=== PATIENT | male | born 1960 | race Caucasian/White ===

== ENCOUNTER 2016-08-20 11:45 | Emergency (ER) | payer SELFPAY ==
[2016-08-20] MEDS ORDERED: KETOROLAC TROMETHAMINE 30 MG/1ML VIAL IVP ONE (12:17)
--- NOTE | 2016-08-20 12:21 | ED Physician Documentation ---
Abdominal Pain - HISTORIAN Historian: patient - HPI Stated Complaint: abdominal pain Chief Complaint: Abdominal Pain Onset: days ago (4) Duration: constant Timing: still present Context: denies: out of country travel, recent trauma Severity: moderate Quality: pain, cramping Associated Symptoms: fever, diarrhea (loose stool small amount), loss of appetite. denies: chills, nausea, vomiting, bloody emesis, grossly bloody stools Exacerbated by: nothing Relieved by: nothing Further Comments: yes - ROS CONST: no problems - SOCIAL HX Smoking History: greater than 1 pack/day Alcohol Use: occasionally Drug Use: none - FAMILY HX Family History: no significant history - PAST HX Past History: none Surgeries/Procedures: cholecystectomy Home Medications: Ambulatory Orders Medication Instructions Recorded Tramadol HCl [Ultram] 50 mg PO Q6 PRN #20 tablet 08/20/16 Allergies/Adverse Reactions: Allergies Allergy/AdvReac Type Severity Reaction Status Date / Time No Known Allergies Allergy Verified 08/20/16 11:55 - VITAL SIGNS Vital Signs: Vital Signs Temp Pulse Resp BP Pulse Ox 99.3 F 68 20 132/95 96 08/20/16 11:45 08/20/16 17:08 08/20/16 17:08 08/20/16 17:08 08/20/16 17:08 - REVIEWED ASSESSMENTS Nursing Assessment Reviewed: Yes Vitals Reviewed: Yes ED Results Lab/Radiology - Lab Results Lab Results: Lab Results 08/20/16 08/20/16 08/20/16 12:50 12:25 12:25 WBC 5.50 K/ul K/ul (4.00-12.00) RBC 5.12 M/ul M/ul (3.90-5.20) Hgb 16.1 g/dL g/dL (12.0-18.0) Hct 47.7 % % (37.0-53.0) MCV 93.1 fl fl (80.0-100.0) MCH 31.4 pg pg (28.0-34.0) MCHC 33.8 g/dL g/dL (30.0-36.0) RDW 14.3 % % (11.3-14.3) Plt Count 236 K/mm3 K/mm3 (130-400) Neut % (Auto) 57.4 % % (39.0-79.0) Lymph % (Auto) 29.0 % % (16.0-50.0) Whitfield % (Auto) 6.3 % % (0.0-11.0) Eos % (Auto) 4.4 % % (0.0-6.8) Baso % (Auto) 1.0 (0.0-1.5) Neut # 3.1 # k/uL # k/uL (1.4-7.7) Lymph # 1.6 # k/uL # k/uL (0.6-4.0) Whitfield # 0.4 # k/uL # k/uL (0.0-0.9) Eos # 0.2 # k/uL # k/uL (0.0-0.6) Baso # 0.1 # k/uL # k/uL (0.0-0.5) Reactive Lymphs % 1.8 % % (0.0-5.0) Reactive Lymphs # 0.1 # k/uL # k/uL (0.0-0.8) Sodium 137 mmol/L mmol/L (136-145) Potassium 4.0 mmol/L mmol/L (3.5-5.0) Chloride 107 mmol/L mmol/L (98-110) Carbon Dioxide 29 mmol/L mmol/L (20-32) BUN 6 mg/dL L mg/dL (10-26) Creatinine 0.7 mg/dL mg/dL (0.4-1.5) Estimated Creat Clear 156 Est GFR ( Amer) > 60 (60 - ) Est GFR (Non-Af Amer) > 60 (60 - ) Glucose 118 mg/dL H mg/dL (70-99) Calcium 9.9 mg/dL mg/dL (8.5-10.5) Total Bilirubin 0.7 mg/dL mg/dL (0.2-1.2) AST 34 U/L U/L (0-41) ALT 27 U/L U/L (0-45) Alkaline Phosphatase 52 U/L U/L (46-116) Total Protein 7.8 g/dL g/dL (6.0-8.5) Albumin 4.8 g/dL g/dL (3.0-5.5) Amylase 54 U/L U/L (20-104) Urine Color Yellow (YELLOW) Urine Appearance Clear (CLEAR) Urine pH 6.5 (5.0 - 8.0) Ur Specific Stevenson 1.010 (1.010-1.030) Urine Protein Negative mg/dL mg/dL (NEGATIVE) Urine Ketones Negative mg/dL mg/dL (NEGATIVE) Urine Occult Blood Negative (NEGATIVE) Urine Nitrite Negative (NEGATIVE) Urine Bilirubin Negative (NEGATIVE) Urine Urobilinogen 0.2 Eu Eu (0.2-1.0) Ur Leukocyte Esterase Negative (NEGATIVE) Urine Glucose Negative mg/dL mg/dL (NEGATIVE) - Radiology Radiology Impressions: Report Submission Date: Aug 20, 2016 3:16:17 PM CDT Patient Study Name: BEATRICE NICOLE Date: Aug 20, 2016 2:45:37 PM CDT Modality Type: CT\SR Gender: M Description: CT ABD & PELVIS W/ CON : 62 Institution: [facility] Physician: DAVID HANSON - ER Examination: CT Abdomen/pelvis History: Generalized abdominal discomfort Comparison exams: None available Technique: CT Abdomen/pelvis with IV protocol. Findings: Liver demonstrates diffuse low attenuation. No central enhancing lesion. Spleen, adrenals, and pancreas are without gross irregularity. No abnormal enhancement. Surgical clips gallbladder fossa. Kidneys demonstrate cortical an exophytic cysts. Mild stranding with Gerota's fascia. No enhancing lesion or suspicious calcification. No dilation of the intrarenal collecting systems or ureters. Bowel without abnormal dilation. Stool within the large bowel limiting sensitivity. Sigmoid diverticuli with thickened mucosa. No adjacent inflammatory changes or free fluid. Scattered subcentimeter mesenteric lymph nodes. Pelvic phleboliths. Osseous structures within normal limits. Lung base scarring. Impression: Sigmoid diverticulosis. No evidence for acute inflammatory process. Scattered subcentimeter mesenteric lymph nodes. No pathologic lymph nodes. Possibly represents sequela of mild mesenteritis. Fatty liver. Electronically signed on Aug 20, 2016 3:16:17 PM CDT by: Cr Evans - Orders Orders: ED Orders Category Date Time Status Place IV Lock 1T Care 08/20/16 12:18 Active ABD SERIES PA CHEST [RAD] Stat Exams 08/20/[address] ABD & PELVIS W/ CON Stat Exams 08/20/16 Completed AMYLASE Routine Lab 08/20/16 12:25 Completed CBC/PLATELET/DIFF Routine Lab 08/20/16 12:25 Completed CMP Routine Lab 08/20/16 12:25 Completed URINALYSIS Routine Lab 08/20/16 12:50 Completed 0.9 % Sodium Chloride [Normal Saline] 1,000 ml Med 08/20/16 13:00 Discontinued IV .Q1H 0.9 % Sodium Chloride [Normal Saline] 1,000 ml Med 08/20/16 12:56 Discontinued IV .STK-MED Ketorolac Tromethamine [Toradol] Med 08/20/16 12:17 Discontinued 30 mg IVP NOW ONE [facility] Med 08/20/16 12:26 Discontinued 1 each [facility] .STK-MED ONE fentaNYL CITRATE/PF [Duragesic] Med 08/20/16 14:37 Discontinued 50 mcg IVP NOW ONE Abdominal Pain Physical Exam - Physical Exam General Appearance: alert, mild distress NECK: normal inspection RESPIRATORY: no resp distress, chest non-tender, breath sounds normal. No: wheezes, rales, rhonchi CVS: reg rate & rhythm, heart sounds normal, equal pulses ABDOMEN: soft, normal bowel sounds, no distension, tenderness (mild diffuse). No: rebound, guarding NEURO: oriented X3, mood/affect nml, cognition normal Vital Signs: Vital Signs Temp Pulse Resp BP Pulse Ox 99.3 F 68 20 132/95 96 08/20/16 11:45 08/20/16 17:08 08/20/16 17:08 08/20/16 17:08 08/20/16 17:08 Discharge Clincal Impression: Mesenteric adenitis Prescriptions: Tramadol HCl [Ultram] 50 mg PO Q6 PRN #20 tablet PRN Reason: Pain Referrals: Primary Doctor,No [Primary Care Provider] - 2 Days Additional Instructions: Drink a lot of fluids to stay well hydrated. Take tyleno to help with pain. For severe pain take tramadol as instructed with food. If not improved within the next several days to follow-up with someone again. Home Medications: Ambulatory Orders Tramadol HCl [Ultram] 50 mg PO Q6 PRN #20 tablet 08/20/16 Condition: Stable Disposition: 01 HOME, SELF-CARE Decision to Admit: NO Date of Decison to Admit: 08/20/16 Decision Time: 16:14
[2016-08-20] MEDS ORDERED: PHARMACY KEY 1 EACH EACH MC ONE (12:26)
[2016-08-20 12:27] LABS: EOSINOPHILS % 4.4 % (0.0-6.8); MEAN CORPUSCULAR HEMOGLOBIN 31.4 pg (28.0-34.0); MEAN CORPUSCULAR VOLUME 93.1 fl (80.0-100.0); MONOCYTES % 6.3 % (0.0-11.0); NEUTROPHILS # 3.1 # k/uL (1.4-7.7)
[2016-08-20 12:47] LABS: eGFR (African) > 60; eGFR (Non-African) > 60
[2016-08-20 12:55] LABS: APPEARANCE,URINE Clear (CLEAR); COLOR,URINE Yellow (YELLOW); OCCULT BLOOD,URINE Negative (NEGATIVE); PH URINE 6.5 (5.0 - 8.0); UROBILINOGEN URINE 0.2 Eu (0.2-1.0)
[2016-08-20] MEDS ORDERED: 0.9 % SODIUM CHLORIDE 1,000 ML IV ONE (12:56)
[2016-08-20] MEDS ORDERED: 0.9 % SODIUM CHLORIDE 1,000 ML IV SCH (13:00)
[2016-08-20] MEDS ORDERED: fentaNYL CITRATE/PF 100 MCG/ 2ML AMP IVP ONE (14:37)
[2016-08-20 17:10] VITALS: BP 132/95
--- NOTE | 2016-08-20 17:25 | Diagnostic Imaging Report ---
[facility] [address] [facility] [address] [place], [place]. [address] Report Submission Date: Aug 20, 2016 12:47:52 PM CDT Patient Study Name: BEATRICE NICOLE Date: Aug 20, 2016 12:27:50 PM CDT Modality Type: CR Gender: M Description: CHEST,ABDOMEN : 62 Institution: [facility] Physician: DAVID HANSON - ANUEL Examination: Obstruction series History: Abdominal discomfort Findings: 4 views obtained of the chest and abdomen. Single view of the chest demonstrate a normal cardiac silhouette. Mildly prominent left hilum: possibly vasculature. No focal infiltrate. No effusion. Multiple views of the abdomen are without abnormal dilation of the large or small bowel. Air and stool throughout the large bowel. No suspicious calcification projecting over the renal fossa or the lower pelvic region. Scattered pelvic phleboliths. Right upper quadrant surgical clips. Osseous structures demonstrate degenerative changes. Impression: No infiltrate or effusion. Mildly prominent left hilum correlate with any previous examinations. If none available recommend a formal PA and lateral film No ileus or obstruction. No suspicious calcifications by plain film sensitivity. Electronically signed on Aug 20, 2016 12:47:52 PM CDT by: Cr MCDUFFIE
--- NOTE | 2016-08-20 17:31 | Diagnostic Imaging Report ---
[facility] [address] [facility].[address] [address] Report Submission Date: Aug 20, 2016 3:16:17 PM CDT Patient Study Name: BEATRICE NICOLE Date: Aug 20, 2016 2:45:37 PM CDT Modality Type: CT\SR Gender: M Description: CT ABD & PELVIS W/ CON : 62 Institution: [facility] Physician: DAVID HANSON Examination: CT Abdomen/pelvis History: Generalized abdominal discomfort Comparison exams: None available Technique: CT Abdomen/pelvis with IV protocol. Findings: Liver demonstrates diffuse low attenuation. No central enhancing lesion. Spleen, adrenals, and pancreas are without gross irregularity. No abnormal enhancement. Surgical clips gallbladder fossa. Kidneys demonstrate cortical an exophytic cysts. Mild stranding with Gerota's fascia. No enhancing lesion or suspicious calcification. No dilation of the intrarenal collecting systems or ureters. Bowel without abnormal dilation. Stool within the large bowel limiting sensitivity. Sigmoid diverticuli with thickened mucosa. No adjacent inflammatory changes or free fluid. Scattered subcentimeter mesenteric lymph nodes. Pelvic phleboliths. Osseous structures within normal limits. Lung base scarring. Impression: Sigmoid diverticulosis. No evidence for acute inflammatory process. Scattered subcentimeter mesenteric lymph nodes. No pathologic lymph nodes. Possibly represents sequela of mild mesenteritis. Fatty liver. Electronically signed on Aug 20, 2016 3:16:17 PM CDT by: Cr MCDUFFIE
== END 2016-08-20 16:40 | disposition home or self-care (01) ==
LOC: ED 11:45
DX: I88.0 Nonspecific mesenteric lymphadenitis (principal)
CPT/HCPCS: 74022; 74177; 80053; 81002; 82150; 85025; J1885; J3010; J7030; Q9966; 96361; 96375; 99283; A9698

== ENCOUNTER 2016-09-11 14:22 | Emergency (ER) | payer SELFPAY ==
[2016-09-11] MEDS ORDERED: methylPREDNISolone SOD SUCC 125 MG/2 ML VIAL IM ONE (14:32)
--- NOTE | 2016-09-11 14:37 | ED Physician Documentation ---
Skin Rash - HISTORIAN Historian: patient - HPI Chief Complaint: Skin Rash Additional Information: thinks its poison ken or oak. plaques, pruritic, now oozing in some areas. using calamine lotion only Onset: days ago Timing: still present Duration: persistent since Location: [facility] [place] Quality: itchy Where: home Context: Medication Exposure: none Context: Food Exposure: none Context: Other Exposure: poison ken, poison oak Further Comments: no - ROS CONST: none CVS/RESP: none EYES/ENT: none GI/: none MS/SKIN/LYMPH: none NEURO/PSYCH: none - PAST HX Past History: none Other History: none Surgeries/Procedures: No Allergies/Adverse Reactions: Allergies Allergy/AdvReac Type Severity Reaction Status Date / Time No Known Allergies Allergy Verified 09/11/16 14:28 Home Medications: Ambulatory Orders Medication Instructions Recorded NK [NK] 09/11/16 - SOCIAL HX Smoking History: cigarettes Alcohol Use: occasionally Drug Use: none - FAMILY HX Family History: none - VITAL SIGNS Vital Signs: Vital Signs Temp Pulse Resp BP Pulse Ox 132/95 08/20/16 17:08 - REVIEWED ASSESSMENTS Nursing Assessment Reviewed: Yes Vitals Reviewed: Yes ED Results Lab/Radiology - Orders Orders: ED Orders Category Date Time Status methylPREDNISolone SOD SUCC [Solu-MEDROL] Med 09/11/16 14:32 Once 125 mg IM NOW ONE Skin Rash Physical Exam - EXAM General Appearance: no acute distress, alert Skin: skin rash, plaque (both UE, elbows to hands, reddened, pruritic, some areas moist, weeping) Location: extremities Character: maculopapular, patchy, vesicular, urticarial Symptoms: warmth, tenderness, weeping, inflammation EENT: eyes nml inspection, pharynx nml Neck: no swelling Respiratory: no resp distress CVS: reg. rate & rhythm Abdomen: non-tender Neuro/Psych: oriented x3 Discharge Clincal Impression: Rhus dermatitis Referrals: Primary Doctor,No [Primary Care Provider] - 2 Days Home Medications: Ambulatory Orders NK [NK] 09/11/16 Condition: Stable Disposition: 01 HOME, SELF-CARE Decision to Admit: NO Date of Decison to Admit: 09/11/16 Decision Time: 14:37
[2016-09-11 15:04] VITALS: BP 128/68
== END 2016-09-11 14:52 | disposition home or self-care (01) ==
LOC: ED 14:22
DX: L23.7 Allergic contact dermatitis due to plants, except food (principal)
CPT/HCPCS: 96372; 99283; J2930

== ENCOUNTER 2017-02-20 09:28 | Emergency (ER) | payer SELFPAY ==
--- NOTE | 2017-02-20 09:50 | ED Physician Documentation ---
Chest Pain - HISTORIAN Historian: patient - HPI Chief Complaint: General Adult Onset: hours (10) Timing: sudden onset Duration: constant Last known Well Date: 02/19/17 Last Known Well Time: 20:00 Context: onset during:, activity (painting) Severity: moderate Quality: other (sharp) Chest Pain Radiation: no radiation Chest Pain Signs/Symptoms: denies: nausea, vomiting, diaphoresis Worsened By: deep breaths Relieved By: nothing Further Comments: yes (Onset last night while painting) - ROS CONST: denies: recent illness MS/LYMPH: none GI/: none EYES/ENT: none SKIN/ENDO: none NEURO/PSYCH: other (was drinking heavily last evening) - PAST HX DC risk factors: no pertinent history. denies: hypertension, diabetes Type 1, diabetes Type 2, hyperlipidemia, cardiac disease DVT/PE Risk Factors: none TAD/AAA risk factors: none Neuro deficit: none GI disease: none Lung disease: COPD Surgeries/Procedures: cholecysectomy Immunizations: other Allergies/Adverse Reactions: Allergies Allergy/AdvReac Type Severity Reaction Status Date / Time No Known Allergies Allergy Verified 02/20/17 10:07 Home Medications: Ambulatory Orders Medication Instructions Recorded NK [NK] 09/11/16 - SOCIAL HX Smoking History: cigarettes Alcohol Use: occasionally Drug Use: none - FAMILY HX Family HX: none - VITAL SIGNS Vital Signs: Vital Signs Temp Pulse Resp BP Pulse Ox 128/68 09/11/16 14:52 - REVIEWED ASSESSMENTS Nursing Assessment Reviewed: Yes Vitals Reviewed: Yes Progress - EKG/XRAY/CT EKG: NSR, RBBB ED Results Lab/Radiology - Orders Orders: ED Orders Category Date Time Status Continuous EKG monitoring Q30M Care 02/20/17 09:47 Ordered Continuous Pulse Oximetry Q30M Care 02/20/17 09:[address] IV Lock 1T Care 02/20/17 09:47 Ordered CHEST 1 VIEW [RAD] Stat Exams 02/20/17 09:47 Ordered CBC/PLATELET/DIFF Routine Lab 02/20/17 09:47 Ordered CMP Routine Lab 02/20/17 09:47 Ordered TROPONIN I (cTnI) Stat Lab 02/20/17 09:47 Ordered Aspirin Med 02/20/17 09:47 Once 324 mg PO NOW ONE Oxygen Daily Oxygen 02/20/17 10:00 Ordered EKG WITH COMPARISON Stat Ther 02/20/17 09:47 Ordered Chest Pain Physical Exam - EXAM General Appearance: alert, mild distress, other (Anxious 56 year old male with a valerio and stocking cap who smells heavily of alcohol. ) EENT: eye inspection normal, ENT inspection normal, pharynx normal, other ( Dentition in poor repair) Neck: nml inspection, no carotid bruit Respiratory: no resp. distress, decreased air movement, wheezes, rales CVS: reg. rate & rhythm Abdomen: soft, no organomegaly, normal bowel sounds Rectal: deferred Skin: warm/dry, normal color, cyanosis Extremities: non-tender, normal range of motion Neuro: oriented X3, CN's nml as tested Discharge Clincal Impression: Non-cardiac chest pain Referrals: Primary Doctor,No [Primary Care Provider] - 2 Days Condition: Good Disposition: 01 HOME, SELF-CARE Decision to Admit: NO Decision Time: 11:56
[2017-02-20] MEDS: ASPIRIN 81 MG CHEW TAB PO ONE (09:57)
[2017-02-20] MEDS: 0.9 % SODIUM CHLORIDE 1,000 ML IV ONE ×2 (09:57→10:06)
[2017-02-20] MEDS ORDERED: ASPIRIN 81 MG CHEW TAB ONE (09:59)
[2017-02-20 10:04] LABS: BASOPHILS % 0.9 (0.0-1.5); EOSINOPHILS % 2.2 % (0.0-6.8); MEAN CORPUSCULAR HEMOGLOBIN 34.1 pg (28.0-34.0); MEAN CORPUSCULAR VOLUME 95.6 fl (80.0-100.0); MONOCYTES % 5.3 % (0.0-11.0); NEUTROPHILS # 4.5 # k/uL (1.4-7.7)
[2017-02-20 10:10] LABS: eGFR (African) > 60; eGFR (Non-African) > 60
[2017-02-20] MEDS: KETOROLAC TROMETHAMINE 30 MG/1ML VIAL ONE (10:31)
[2017-02-20] MEDS: KETOROLAC TROMETHAMINE 30 MG/1ML VIAL IVP ONE (11:47)
[2017-02-20 12:15] VITALS: BP 144/87
--- NOTE | 2017-02-20 14:15 | Diagnostic Imaging Report ---
WALESKA ORNELAS [facility] [address] [facility] [address] [address] Report Submission Date: Feb 20, 2017 10:03:48 AM INTERNET MARKETING CONSULTANT Patient Study Name: BEATRICE NICOLE Date: Feb 20, 2017 9:53:15 AM INTER[employer] MARKETING CONSULTANT Modality Type: CR Gender: M Description: CHEST : 62 Institution: [facility] Physician: WALESKA ORNELAS Examination: Portable chest History: Chest discomfort Comparison exam: None provided Findings: Single view of the chest demonstrates a normal cardiac and mediastinal silhouette. Lung bullock without focal infiltrate. No blunting of the costophrenic margins. Osseous structures are appropriate for age. Impression: No acute pulmonary process. Electronically signed on Feb 20, 2017 10:03:48 AM INTERNET MARKETING CONSULTANT by: Cr MCDUFFIE
== END 2017-02-20 12:00 | disposition home or self-care (01) ==
LOC: ED 09:28
DX: R07.89 Other chest pain (principal)
CPT/HCPCS: 71010; 80053; 84484; 85025; 96361; 96374; 99283; J1885; J7030; S1016